=== PATIENT | female | born 1985 | race Caucasian/White ===

== ENCOUNTER 2018-06-09 08:51 | Day surgery (SDC) | payer MEDICAID ==
[~2018-06-09] VITALS: Ht 152.4 cm; Wt 70.5 kg
[2018-06-09] MEDS ORDERED: MIDAZolam 5mg/5ml vial ONE (09:11)
[2018-06-09] MEDS ORDERED: fentaNYL/PF 50MCG/1 ML 2ML syringe ONE ×2 (09:11→11:26)
[2018-06-09] MEDS ORDERED: LIDOcaine Viscous 15ml cup ONE (09:11)
[2018-06-09] MEDS ORDERED: NO HOME MEDS (09:25)
[2018-06-09 09:32] VITALS: BP 124/52
[2018-06-09 11:39] VITALS: BP 134/78
[2018-06-09 11:49] VITALS: BP 113/85
[2018-06-09 11:59] VITALS: BP 118/77
[2018-06-09 12:09] VITALS: BP 116/86
== END 2018-06-09 12:20 | disposition home or self-care (01) ==
LOC: GI LAB 08:51
PROVIDERS: ATTEND Internal Medicine Gastroenterology
DX: K29.50 Unspecified chronic gastritis without bleeding (principal); K21.0 Gastro-esophageal reflux disease with esophagitis; K31.89 Other diseases of stomach and duodenum; Z88.3 Allergy status to other anti-infective agents; Z90.710 Acquired absence of both cervix and uterus; Z87.442 Personal history of urinary calculi; Z87.440 Personal history of urinary (tract) infections; Z72.89 Other problems related to lifestyle; Z98.890 Other specified postprocedural states
CPT/HCPCS: 43239; 99152; J2250; J3010; J7030; A4620; G0500

== ENCOUNTER 2024-02-27 14:42 | Emergency (ER) | payer MEDICAID ==
[~2024-02-27] VITALS: Ht 152.4 cm; Wt 66.0 kg
[~2024-02-27 14:42] MED LIST: NO HOME MEDS
[2024-02-27 15:01] VITALS: BP 120/86; PULSE 100; RESP 16; TEMP 98.3; O2SAT 100
[2024-02-27 15:22] LABS: BILIRUBIN,URINE NEGATIVE (Neg); CLARITY,URINE CLOUDY (Clear); COLOR,URINE YELLOW (Yellow); GLUCOSE, URINE NEGATIVE (Neg); KETONES,URINE TRACE mg/dl (Neg); LEUKOCYTE ESTERASE ,URINE SMALL (Neg); NITRITES, URINE NEGATIVE (Neg); OCCULT BLOOD,URINE SMALL (Neg); PROTEIN,URINE TRACE mg/dl (Neg); UA COLLECTION TYPE CLN CATCH MIDSTREAM
[2024-02-27 15:31] LABS: BACTERIA,URINE 2+ /HPF (Neg); WBC,URINE 50-100 /HPF (0-4)
[2024-02-27 15:32] LABS: MUCUS STRANDS FEW /LPF (Neg); SQUAMOUS EPITHELIAL CELL,UR MODERATE /LPF (FEW); WBC CLUMPS,URINE FEW /HPF (NEGATIVE)
[2024-02-27] MEDS ORDERED: CEPH-585 PO (15:52)
== END 2024-02-27 16:00 | disposition home or self-care (01) ==
LOC: ER 14:42
DX: N39.0 Urinary tract infection, site not specified (principal); M54.9 Dorsalgia, unspecified; Z91.040 Latex allergy status; Z79.2 Long term (current) use of antibiotics
CPT/HCPCS: 81001; 87077; 87088; 87186; 99283